=== PATIENT | male | born 1960 | race Caucasian/White ===

== ENCOUNTER 2019-05-28 08:54 | Day surgery (SDC) | payer BC ==
[2019-05-28] MEDS ORDERED: LIDOCAINE 2% MDV (20MG/ML) 20ML VIAL IV ONE (08:55)
[2019-05-28] MEDS ORDERED: PROPOFOL 10 MG/ML VIAL IV ONE (08:55)
--- NOTE | 2019-05-28 14:50 | Operative Note ---
OPERATION: COLONOSCOPY. PREOPERATIVE DIAGNOSIS: Personal history of adenomatous polyp. POSTOPERATIVE DIAGNOSIS: Normal exam. PREPARATION QUALITY: Good. ESTIMATED BLOOD LOSS: None. COMPLICATIONS: None. SPECIMENS: None. PROCEDURE: After informed consent was obtained from the patient, he was placed in the left lateral decubitus position in the endoscopy suite, sedated and monitored by the department of anesthesia. Digital rectal examination was unremarkable. A well-lubricated [id number] adult colonoscope was inserted into the rectum and advanced to the cecum. Preparation quality was good. The cecum, cecal bulb, ileocecal valve, appendiceal orifice, ascending colon, transverse colon, descending colon, sigmoid colon, and rectum were free of inflammatory changes, mass lesions, or polyps. Forward and J-turn views of the rectum and anorectum were unremarkable. The endoscope was straightened, the rectal ampulla deflated, and the endoscope was removed. RECOMMENDATIONS: I would suggest the patient undergo repeat exam in 5 years based on his history. As always, thank you for allowing me to participate in the healthcare of your patients. XAVIER
== END 2019-05-28 10:15 | disposition home or self-care (01) ==
LOC: HOP 08:54
PROVIDERS: ATTEND Internal Medicine Gastroenterology
DX: Z12.11 Encounter for screening for malignant neoplasm of colon (principal); Z86.010 Personal history of colon polyps; G25.81 Restless legs syndrome; M19.90 Unspecified osteoarthritis, unspecified site
CPT/HCPCS: 00812; G0105